=== PATIENT | male | born 1990 | race Hispanic/Latino ===

== ENCOUNTER 2023-10-23 03:42 | Emergency (ER) | payer OTHER, SELFPAY ==
[2023-10-23] MEDS ORDERED: LORAZEPAM 1 MG TABLET ONE (05:01)
[2023-10-23 05:11] LABS: Absolute Basophils 0.1 K/uL (0-0.5); Absolute Lymphocytes (CBC) 3.2 K/uL (0.7-4.9); Absolute Monocytes 0.6 K/uL (0.1-1.3); Basophils % 0.6 % (0-1.3); Eosinophils % 0.5 % (0-4.4); Hematocrit 47.6 % (39.6-49.0); Hemoglobin 15.8 g/dL (13.6-17.9); Lymphocytes % 31.9 % (15.3-44.8); MCH 30.5 pg (27.0-35.0); MCHC 33.2 g/dL (32.0-36.0); MCV 91.8 fL (80-100); MPV 8.2 fL (7.6-11.3); Monocytes % 6.2 % (3.3-12.3); Neutrophils % 60.8 % (41.7-73.7); Platelets 300 thou/uL (152-406); RBC Red Blood Cell Count 5.18 M/uL (4.33-5.43); Red Cell Distribution Width 13.8 % (12.1-15.2)
[2023-10-23 05:14] LABS: ALT/SGPT 46 U/L (16-61); AST/SGOT 12 U/L (15-37); Albumin 3.6 g/dL (3.4-5.0); Albumin/Globulin Ratio 0.8 (1.1-1.8); Alkaline Phosphatase 79 U/L (45-117); Anion Gap 9.3 mEq/L (5.0-15.0); BUN Blood Urea Nitrogen 9 mg/dL (7-18); Bicarbonate 28 mEq/L (21-32); Bilirubin Total 0.6 mg/dL (0.2-1.0); Globulin 4.3 g/dL (2.3-3.5); Glomerular Filtration Rate 116 ml/min (=/>90); Glucose Level 152 mg/dL (74-106); Magnesium 1.8 mg/dL (1.6-2.4); NT PRO-BNP 17 pg/mL (<125); Potassium 3.3 mEq/L (3.5-5.1); Protein, Total 7.9 g/dL (6.4-8.2); Sodium Level 137 mEq/L (136-145)
[2023-10-23 05:32] LABS: Bilirubin Direct < 0.2 mg/dL (0-0.2); Bilirubin Indirect, Calculated 0.4 mg/dL (0.2-0.8); Troponin High Sensitivity < 3.0 pg/mL (<58.9)
[2023-10-23] MEDS ORDERED: POTASSIUM 25 MEQ EFFERV TAB ONE (08:14)
[2023-10-23] MEDS ORDERED: NA CHLORIDE 0.9% 1,000 ML ONE (08:14)
--- NOTE | 2023-10-23 09:35 | ER ---
Nurse's Notes [facility] Name: Desmond Espino Age: 33 yrs Sex: Male : 1990 Arrival Date: 10/23/2023 Time: 03:42 Bed Ultrasound Private MD: Diagnosis: Dyspnea;Anxiety disorder, unspecified;Obesity, unspecified;Hypokalemia;Synovial cyst of popliteal space [Bear], left knee Presentation: 10/22 04:11 Chief complaint: Patient states: Woke up this morning feeling short of breath and ss anxious. Coronavirus screen: Client denies travel out of the [place] in the last 14 days. Ebola Screen: Patient denies exposure to infectious person. Patient denies travel to an Ebola-affected area in the 21 days before illness onset. Initial Sepsis Screen: Does the patient meet any 2 criteria? No. Patient's initial sepsis screen is negative. Does the patient have a suspected source of infection? No. Patient's initial sepsis screen is negative. Risk Assessment: Do you want to hurt yourself or someone else? Patient reports no desire to harm self or others. Onset of symptoms was October 23, 2023. 04:11 Method Of Arrival: Ambulatory ss 04:11 Acuity: STEFANY 3 ss Triage Assessment: 04:12 General: Appears in no apparent distress. Behavior is cooperative, anxious, restless. ss Pain: Denies pain. Neuro: Level of Consciousness is awake, alert, obeys commands, Oriented to person, place, time, situation. Respiratory: Airway is patent Respiratory effort is even, unlabored, Respiratory pattern is regular, symmetrical. Respiratory: Respiratory effort is even, unlabored. Derm: Skin is intact, is healthy with good turgor, Skin is dry, Skin is pink, warm \T\ dry. normal. 09:59 Respiratory: Reports shortness of breath Onset: The symptoms/episode began/occurred ap3 gradually, the patient has mild shortness of breath. Historical: - Allergies: 04:12 No Known Allergies; ss - Home Meds: 04:12 Metformin Oral [Active]; ss - PMHx: 04:12 Diabetes mellitus; ss - PSHx: 04:12 None; ss - Immunization history:: Client reports having NOT received the Covid vaccine. - Infectious Disease History:: Denies. - Social history:: Smoking status: Patient denies any tobacco usage or history of. - Family history:: not pertinent. Screenin:21 Abuse screen: Denies threats or abuse. Nutritional screening: No deficits noted. ap3 Tuberculosis screening: No symptoms or risk factors identified. 10:00 [facility] ED Fall Risk Assessment (Adult) History of falling in the last 3 months, ap3 including since admission No falls in past 3 months (0 pts) Confusion or Disorientation No (0 pts) Intoxicated or Sedated No (0 pts) Impaired Gait No (0 pts) Mobility Assist Device Used No (0 pt) Altered Elimination No (0 pt) Score/Fall Risk Level 0 - 2 = Low Risk Oriented to surroundings, Maintained a safe environment, Educated pt \T\ family on fall prevention, incl call for assistance when getting out of bed, Assessed \T\ reinforced patient's understanding of fall precautions, Provided non-skid footwear, Hourly rounding (assess needs \T\ fall precautionary measures) done, Used ambulatory aids as needed (educated on \T\ assisted with), Used gait belt as appropriate. Assessment: 05:03 Reassessment: Pt is ambulatory to restroom with steady gait. ss 06:00 Reassessment: US at bedside. ss 08:21 Reassessment: Patient and/or family updated on plan of care and expected duration. Pain ap3 level reassessed. Patient is alert, oriented x 3, equal unlabored respirations, skin warm/dry/pink. General: Appears in no apparent distress. Behavior is calm, cooperative. Neuro: Level of Consciousness is awake, alert, obeys commands, Oriented to person, place, time, situation. Cardiovascular: Patient's skin is warm and dry. Respiratory: Airway is patent Respiratory effort is even, unlabored, Respiratory pattern is regular, symmetrical. 10:00 Cardiovascular: Rhythm is regular. Respiratory: Breath sounds are clear. ap3 Vital Signs: 04:11 BP 175 / 107; Pulse 115; Resp 17; Pulse Ox 99% on R/A; Weight 124.74 kg; Height 5 ft. 5 ss in. ; Pain 0/10; 04:15 Temp 98.3(O); ss 08:20 BP 136 / 76; Pulse 84; Resp 17; Temp 98.9; Pulse Ox 99% ; ap3 04:11 Body Mass Index 45.76 (124.74 kg, 165.1 cm) ss 04:11 Pain Scale: Adult ss ED Course: 03:47 Patient arrived in ED. gm2 03:48 Israel Vernon MD is Attending Physician. rt 04:12 Triage completed. ss 04:12 Arm band placed on right wrist. ss 04:16 Cammy Messer, RN is Primary Nurse. ss 04:39 Inserted saline lock: 20 gauge in right antecubital area, using aseptic technique. ss Blood collected. 04:40 Basic Metabolic Panel Sent. ss 04:40 CBC with Diff Sent. ss 04:40 D-Dimer Sent. ss 04:40 LFT's Sent. ss 04:40 Magnesium Sent. ss 04:40 NT PRO-BNP Sent. ss 04:40 Troponin HS Sent. ss 04:42 XRAY Chest (1 view) In Process Unspecified. EDMS 06:11 Extremity Venous Uni Ltd US In Process Unspecified. EDMS 06:17 CT Chest For PE Angio In Process Unspecified. EDMS 07:10 Attending Physician role handed off by Israel Vernon MD teo 07:10 Rafael Solorzano MD is Attending Physician. teo 08:21 Patient has correct armband on for positive identification. Placed in gown. Bed in low ap3 position. Call light in reach. Side rails up X2. Provided Education on: medications prior to administration. Pulse ox on. NIBP on. 09:18 Extremity Venous Uni Ltd In Process Unspecified. EDMS 09:35 Raffaele Savage MD is Referral Physician. teo 09:58 No provider procedures requiring assistance completed. IV discontinued, intact, ap3 bleeding controlled, No redness/swelling at site. Pressure dressing applied. Administered Medications: 05:02 Drug: LORazepam PO 1 mg PO once Route: PO; ss 08:21 Drug: NS 0.9% IV 1000 ml IV at 1 bolus Per protocol; 1000 mL bolus Route: IV; Rate: 1 ap3 bolus; Site: right antecubital; 09:59 Follow up: IV Status: Completed infusion; IV Intake: 1000ml ap3 08:21 Drug: Potassium PO Effervescent Tablet 50 mEq PO once; dissolve in 4 ounces of water or ap3 juice Route: PO; 09:59 Follow up: Response: No adverse reaction ap3 Medication: 09:59 VIS not applicable for this client. ap3 Intake: 09:59 IV: 1000ml; Total: 1000ml. ap3 Outcome: 09:34 Discharge ordered by . teo 09:59 Discharged to home ambulatory, ap3 09:59 Condition: good 09:59 Discharge instructions given to patient, Instructed on discharge instructions, follow up and referral plans. medication usage, Demonstrated understanding of instructions, follow-up care, medications, Prescriptions given X 1, 10:00 Patient left the ED. ap3 Signatures: Dispatcher [employer] EDMS Rafael Solorzano MD MD cha Blanchard, Shelby, RN RN ss Prokisch, Amanda, RN RN ap3 Israel Vernon MD MD rt Mitchell, Ginger 2 Corrections: (The following items were deleted from the chart) 04:13 04:12 PMHx: None; ss
--- NOTE | 2023-10-23 09:35 | EDPHYS ---
Physician Documentation [facility] Name: Desmond Espino Age: 33 yrs Sex: Male : 1990 Arrival Date: 10/23/2023 Time: 03:42 Bed Ultrasound Private MD: Rafael Bedoya HPI: 10/22 04:26 This 33 yrs old Male presents to ER via Ambulatory with complaints of rt Shortness Of Breath, Anxiety. 04:26 Patient woke up about an hour ago feeling short of breath. Patient denies cough, other rt acute complaints. Symptoms are moderate in severity, no other aggravating or alleviating factors.. Historical: - Allergies: 04:12 No Known Allergies; ss - Home Meds: 04:12 Metformin Oral [Active]; ss - PMHx: 04:12 Diabetes mellitus; ss - PSHx: 04:12 None; ss - Immunization history:: Client reports having NOT received the Covid vaccine. - Infectious Disease History:: Denies. - Social history:: Smoking status: Patient denies any tobacco usage or history of. - Family history:: not pertinent. ROS: 04:26 Constitutional: Negative for fever, chills, and weight loss, Cardiovascular: Negative rt for chest pain, palpitations, and edema, Abdomen/GI: Negative for abdominal pain, nausea, vomiting, diarrhea, and constipation, MS/Extremity: Negative for injury and deformity, Skin: Negative for injury, rash, and discoloration, Neuro: Negative for headache, weakness, numbness, tingling, and seizure, 04:26 Respiratory: Positive for shortness of breath, Negative for cough, Exam: 04:26 Constitutional: This is a well developed, well nourished patient who is awake, alert, rt and in no acute distress. Head/Face: Normocephalic, atraumatic. Chest/axilla: Normal chest wall appearance and motion. Nontender with no deformity. No lesions are appreciated. Cardiovascular: Regular rate and rhythm with a normal S1 and S2. No gallops, murmurs, or rubs. Normal PMI, no JVD. No pulse deficits. Respiratory: Lungs have equal breath sounds bilaterally, clear to auscultation and percussion. No rales, rhonchi or wheezes noted. No increased work of breathing, no retractions or nasal flaring. Abdomen/GI: Soft, non-tender, with normal bowel sounds. No distension or tympany. No guarding or rebound. No evidence of tenderness throughout. Skin: Warm, dry with normal turgor. Normal color with no rashes, no lesions, and no evidence of cellulitis. MS/ Extremity: Pulses equal, no cyanosis. Neurovascular intact. Full, normal range of motion. Neuro: Awake and alert, GCS 15, oriented to person, place, time, and situation. Cranial nerves II-XII grossly intact. Motor strength 5/5 in all extremities. Sensory grossly intact. Cerebellar exam normal. Normal gait. 04:31 ECG was reviewed by the Attending Physician. rt 08:29 Musculoskeletal/extremity: DVT Exam: No signs of deep vein thrombosis. no pain, no teo swelling, no tenderness, negative Homans' sign noted on exam, no appreciated bluish discoloration, no erythema, no increased warmth, Vital Signs: 04:11 BP 175 / 107; Pulse 115; Resp 17; Pulse Ox 99% on R/A; Weight 124.74 kg; Height 5 ft. 5 ss in. ; Pain 0/10; 04:15 Temp 98.3(O); ss 08:20 BP 136 / 76; Pulse 84; Resp 17; Temp 98.9; Pulse Ox 99% ; ap3 04:11 Body Mass Index 45.76 (124.74 kg, 165.1 cm) ss 04:11 Pain Scale: Adult ss MDM: 04:09 Patient medically screened. rt 10/22 04:13 Order name: Basic Metabolic Panel; Complete Time: 05:33 rt 10/22 04:13 Order name: CBC with Diff; Complete Time: 05:33 rt 10/22 04:13 Order name: D-Dimer; Complete Time: 05:33 rt 10/22 04:13 Order name: LFT's; Complete Time: 05:33 rt 10/22 04:13 Order name: Magnesium; Complete Time: 05:33 rt 10/22 04:13 Order name: NT PRO-BNP; Complete Time: 05:33 rt 10/22 04:13 Order name: Troponin HS; Complete Time: 05:33 rt 10/22 04:13 Order name: XRAY Chest (1 view) rt 10/22 05:51 Order name: CT Chest For PE Angio rt 10/22 05:51 Order name: Extremity Venous Uni Ltd US rt 10/22 08:39 Order name: Extremity Venous Uni Ltd; Complete Time: 09:49 EDMS 10/22 04:13 Order name: EKG; Complete Time: 04:13 rt 10/22 04:13 Order name: EKG - Nurse/Tech; Complete Time: 04:40 rt 10/22 04:13 Order name: IV Saline Lock; Complete Time: 04:40 rt 10/22 04:13 Order name: Labs collected and sent; Complete Time: 04:40 rt 10/22 04:13 Order name: O2 Per Protocol; Complete Time: 04:40 rt 10/22 04:13 Order name: O2 Sat Monitoring; Complete Time: 04:40 rt EC:31 Rate is 105 beats/min. Rhythm is regular, Normal Sinus Rhythm with No ectopy. QRS [place] rt is Normal. CA interval is normal. QRS interval is normal. QT interval is normal. No Q waves. T waves are Normal. No ST changes noted. Interpreted by me. Administered Medications: 05:02 Drug: LORazepam PO 1 mg PO once Route: PO; ss 08:21 Drug: NS 0.9% IV 1000 ml IV at 1 bolus Per protocol; 1000 mL bolus Route: IV; Rate: 1 ap3 bolus; Site: right antecubital; 09:59 Follow up: IV Status: Completed infusion; IV Intake: 1000ml ap3 08:21 Drug: Potassium PO Effervescent Tablet 50 mEq PO once; dissolve in 4 ounces of water or ap3 juice Route: PO; 09:59 Follow up: Response: No adverse reaction ap3 Disposition Summary: 10/23/23 09:34 Discharge Ordered Notes: Location: Home teo Problem: new teo Symptoms: have improved teo Condition: Stable teo Diagnosis - Dyspnea teo - Anxiety disorder, unspecified teo - Obesity, unspecified teo - Hypokalemia teo - Synovial cyst of popliteal space [Bear], left knee teo Followup: teo - With: Private Physician - When: 2 - 3 days - Reason: Recheck today's complaints, Continuance of care, Re-evaluation by your physician Followup: teo - With: Raffaele Savage MD - When: 2 - 3 days - Reason: Recheck today's complaints, Re-evaluation by your physician Discharge Instructions: - Discharge Summary Sheet teo - Panic Attack teo - Bear Cyst teo - Potassium Content of Foods teo - Hypertension, Adult teo - Obesity, Adult teo - Shortness of Breath, Adult teo - Shortness of Breath, Adult, [id number] teo - Hypertension, Adult, [id number] teo - Diabetes Mellitus and Nutrition, Adult teo - Panic Attack, [id number] teo - Hypokalemia teo - Obesity, Adult, [id number] teo - Managing Anxiety, Adult teo Forms: - Medication Reconciliation Form teo - Antibiotic Education teo - Prescription Opioid Use teo - Patient Portal Instructions teo - Leadership Thank You Letter [facility] Prescriptions: - Lisinopril 10 mg Oral Tablet - take 1 tablet ORAL route once daily; 20 tablet; Refills: 0, Product Selection teo Permitted Signatures: Dispatcher [employer] EDRafael Parks MD MD cha Blanchard, Shelby, RN RN ss Deanne Betts RN RN ap3 Israel Vernon MD MD rt Corrections: (The following items were deleted from the chart) 04:13 04:13 BASIC METABOLIC PANEL+C.LAB.BRZ ordered. EDMS EDMS 04:13 04:13 CBC+H.LAB.BRZ ordered. EDMS EDMS 04:13 04:13 D-DIMER+COAG.LAB.BRZ ordered. EDMS EDMS 04:13 04:13 HEPATIC FUNCTION+C.LAB.BRZ ordered. EDMS EDMS 04:13 04:13 MAGNESIUM+C.LAB.BRZ ordered. EDMS EDMS 04:13 04:13 PROBNP+C.LAB.BRZ ordered. EDMS EDMS 04:13 04:13 Troponin High Sensitivity+C.LAB.BRZ ordered. EDMS EDMS 04:13 04:12 PMHx: None; ss 08:39 08:30 Extrem Venous W Compression Alexander+US.RAD.BRZ ordered. EDMS EDMS
--- NOTE | 2023-10-23 09:41 | RAD REPORT ---
EXAM DESCRIPTION: US - Extremity Venous Uni Ltd - 10/23/2023 9:16 am CLINICAL HISTORY: Pain COMPARISON: None. TECHNIQUE: Real-time sonographic evaluation of the left lower extremity deep venous system was perfo rmed. FINDINGS: Normal compressibility, flow augmentation, phasic flow and spontaneous flow is identified in the left lower extremity deep venous system. No intraluminal filling defects seen. A 2.7 cm popli teal fossa bilobed cyst is noted suggestive of a Bear cyst. IMPRESSION: No evidence of DVT in the left lower extremity. Incidentally noted 2.7 cm Bear cyst.
[2023-10-23 10:25] VITALS: BP 136/76; TEMP 98.9; O2SAT 99
--- NOTE | 2023-10-23 10:27 | RAD REPORT ---
EXAM DESCRIPTION: CT - Chest For Pe Angio - 10/23/2023 7:06 am CLINICAL HISTORY: Male, 33 years old, dsypnea COMPARISON: None. TECHNIQUE: CT acquisition of the chest with contrast utilizing an institutional pulmonary angiogram technique. Maximal intensity projection and/or 3D sequences were created by the technologist. Coronal and sagittal reformatted images provided. This exam was performed according to departmental dose-opt imization program which includes automated exposure control, adjustment of the mA and/or kV according to patient size, and/or use of iterative reconstruction technique. FINDINGS: SUPPORTIVE DEVICES: None. LOWER NECK: Unremarkable. PULMONARY ARTERIES: Diagnostic quality: Adequate for assessment of the lobar pulmonary arteries. Filling defects: No evidence of pulmonary embolism. Caliber: No significant enlargement of the pulmonary arteries. REMAINING CHEST: Mediastinum/john paul: Unremarkable appearance of the aorta. No evident thoracic adenopathy. Unremarkable esophagus. Heart: Normal size and position of the intraventricular septum. No pericardial thickening or effusion . Lungs: No pulmonary consolidation. Central airways are clear. Pleural Space: No pleural effusion or pneumothorax. UPPER ABDOMEN: No acute finding. MUSCULOSKELETAL: No acute findings. IMPRESSION: 1. Limited exam. No evidence of pulmonary embolism within the main or lobar arteries. 2. No acute findings. Electronically signed by: Gilson Orellana MD 10/23/2023 07:01 AM [facility] Due to temporary technical issues with the PACS/Fluency reporting system, reports are being signed by the in house radiologist without review as a courtesy to ensure prompt reporting. The interpreting r adiologist is fully responsible for the content of the report.
--- NOTE | 2023-10-23 10:29 | RAD REPORT ---
EXAM DESCRIPTION: US - Extremity Venous Uni Ltd - 10/23/2023 6:09 am CLINICAL HISTORY: Male, 33 years old, SWELLING COMPARISON: None. TECHNIQUE: Grayscale and color/spectral Doppler ultrasound of the right lower extremity. FINDINGS: Normal flow and compressibility in the common femoral, greater saphenous, femoral, poplite al, peroneal and posterior tibial veins. No intraluminal thrombus is visualized. Visualized waveforms demonstrate normal respiratory variability. IMPRESSION: No sonographic evidence of deep venous thrombosis in the imaged right lower extremity. Electronically signed by: Gilson Orellana MD 10/23/2023 06:59 AM CDT RP Due to temporary technical issues with the PACS/Fluency reporting system, reports are being signed by the in house radiologist without review as a courtesy to ensure prompt reporting. The interpreting r adiologist is fully responsible for the content of the report.
--- NOTE | 2023-10-23 10:45 | RAD REPORT ---
EXAM DESCRIPTION: RAD - Chest Single View - 10/23/2023 4:41 am CLINICAL HISTORY: DYSPNEA COMPARISON: None TECHNIQUE: Single AP view of the chest. FINDINGS: Lung volumes adequate. Cardiac silhouette is normal in size. No pneumothorax. No large pleural effusion. No focal consolidation. No acute bony finding. IMPRESSION: No evidence of acute cardiopulmonary disease. Electronically signed by: Heidi Rodriguez MD 10/23/2023 05:48 AM CDT RP Z9 Due to temporary technical issues with the PACS/Fluency reporting system, reports are being signed by the in house radiologist without review as a courtesy to ensure prompt reporting. The interpreting r adiologist is fully responsible for the content of the report.
--- NOTE | 2023-10-23 13:17 | EKG ---
Test Date: 2023-10-23 Test Time: 04:29:04 Sas Developer: LUIS ALBERTO MEASUREMENT RESULTS: Intervals: Rate: 105 HI: 192 QRSD: 90 QT: 346 QTc: 457 [place]: P: 32 HI: 192 QRS: 47 T: 39 INTERPRETIVE STATEMENTS: Sinus tachycardia Otherwise normal ECG Compared to ECG 05/22/2023 05:20:31 Sinus rhythm no longer present Myocardial infarct finding no longer present Electronically Signed On 10-23-23 13:16:06 CDT by David Adam
== END 2023-10-23 10:00 | disposition home or self-care (01) ==
LOC: ER 03:42
DX: F41.9 Anxiety disorder, unspecified (principal); E87.6 Hypokalemia; M71.22 Synovial cyst of popliteal space [Baker], left knee; E66.9 Obesity, unspecified; Z68.42 Body mass index [BMI] 45.0-49.9, adult
CPT/HCPCS: 96361; 93005; 85025; 80048; 36415; 83735; 85379; 80076; 84484; 83880; 71275; 71045; 93971 ×2; 96360; 99284; Q9967; J7030